=== PATIENT | male | born 1990 | race Caucasian/White ===

== ENCOUNTER 2016-07-10 16:10 | Inpatient (IN) | payer OTHER ==
[2016-07-10 18:22] VITALS: BMI 28.5
--- NOTE | 2016-07-10 20:10 | HP ---
COWS - Scale Resting Pulse: 1= [place] 81-100 Sweatin=Flushed/Facial Moisture Restless Observation: 3= Extraneous Movement Pupil Size: 0= Normal to Room Light Bone or Joint Aches: 2= Severe Diffuse Aches Runny Nose/ Eye Tearin= Nasal Congestion GI Upset > 30mins: 2= Nausea/Diarrhea Tremor Observation: 2= Slight Tremor Visible Yawning Observation: 1= 1-2x During Session Anxiety or Irritability: 1=Feels Anxious/Irritable Goose Flesh Skin: 0=Smooth Skin COWS Score: 15 Admission ROS S - HPI Chief Complaint: WITHDRAWAL SYMPTOMS Allergies/Adverse Reactions: Allergies Allergy/AdvReac Type Severity Reaction Status Date / Time No Known Allergies Allergy Verified 07/10/16 19:54 History of Present Illness: 25 Y.O. MAN WITH A 5 YEAR HISTORY OF OPIATE DEPENDENCE IS SEEKING DETOX. HE REPORTS HE DOES NOT HAVE A SIGNIFICANT PERIOD OF SOBRIETY. HE STATES HE HAS COMPLETED DETOX AND OUTPATIENT REHAB PREVIOUSLY. Exam Limitations: No Limitations - Ebola screening Have you traveled outside of the country in the last 21 days: No Have you had contact with anyone from an Ebola affected area: No Have you been sick,other than usual withdrawal symptoms: No Do you have a fever: No - Review of Systems Constitutional: Chills, Loss of Appetite, Night Sweats, Changes in sleep EENT: reports: Tearing, Nose Congestion Respiratory: reports: Wheezing Cardiac: reports: Lightheadedness GI: reports: No Symptoms Reported : reports: No Symptoms Reported Musculoskeletal: reports: Back Pain, Neck Pain Integumentary: reports: No Symptoms Reported Neuro: reports: No Symptoms reported Endocrine: reports: No Symptoms Reported Hematology: reports: No Symptoms Reported Psychiatric: reports: Orientated x3 Other Systems: Reviewed and Negative Patient History - Patient Medical History Hx Anemia: No Hx Asthma: Yes Hx Chronic Obstructive Pulmonary Disease (COPD): No Hx Cancer: No Hx Cardiac Disorders: No Hx Congestive Heart Failure: No Hx Hypertension: No Hx Hypercholesterolemia: No Hx Pacemaker: No HX Cerebrovascular Accident: No Hx Seizures: No Hx Dementia: No Hx Diabetes: No Hx Gastrointestinal Disorders: No Hx Liver Disease: No Hx Genitourinary Disorders: No Hx Sexually Transmitted Disorders: No Hx Renal Disease (ESRD): No Hx Thyroid Disease: No Hx Human Immunodeficiency Virus (HIV): No Hx Hepatitis C: No Hx Depression: No Hx Suicide Attempt: No Hx Bipolar Disorder: No Hx Schizophrenia: No - Patient Surgical History Past Surgical History: No Hx Neurologic Surgery: No Hx Cataract Extraction: No Hx Cardiac Surgery: No Hx Lung Surgery: No Hx Breast Surgery: No Hx Breast Biopsy: No Hx Abdominal Surgery: No Hx Appendectomy: No Hx Cholecystectomy: No Hx Genitourinary Surgery: No Hx Section: No Hx Orthopedic Surgery: No Anesthesia Reaction: No - PPD History Previous Implant?: Yes Documented Results: Negative w/o proof PPD to be Administered?: Yes - Reproductive History Patient is a Female of Child Bearing Age (11 -55 yrs old): No - Smoking Cessation Smoking history: Current every day smoker Have you smoked in the past 12 months: Yes Aproximately how many cigarettes per day: 20 Hx Chewing Tobacco Use: No Initiated information on smoking cessation: Yes 'Breaking Loose' booklet given: 07/10/16 - Substance & Tx. History Hx Alcohol Use: No Hx Substance Use: Yes Substance Use Type: Heroin Hx Substance Use Treatment: Yes (DETOX AND REHAB ) - Substances Abused Heroin Route: Inhalation Frequency: Daily Amount used: 4 GRAMS Age of first use: 22 Date of Last Use: 07/10/16 Family Disease History - Family Disease History Family Disease History: Other: Father (DRUG ADDICTION ), Mother (DRUG ADDICTION ) Admission Physical Exam BHS - Vital Signs Vital Signs: Vital Signs - 24 hr 07/10/16 18:20 Temperature 98.2 F Pulse Rate 81 Respiratory 20 Rate Blood Pressure 113/68 - Physical General Appearance: Yes: Disheveled HEENTM: Yes: Normal ENT Inspection, Normocephalic, Normal Voice, Nasal Congestion Respiratory: Yes: Wheezing, Expiration, Inspiration Neck: Yes: No masses,lesions,Nodules Breast: Yes: Breast Exam Deferred Cardiology: Yes: Regular Rhythm, Regular Rate, S1, S2 Abdominal: Yes: Normal Bowel Sounds, Non Tender, Flat, Soft Genitourinary: Yes: Within Normal Limits Back: Yes: Normal Inspection Musculoskeletal: Yes: full range of Motion Extremities: Yes: Normal Range of Motion, Non-Tender, Tremors Neurological: Yes: Fully Oriented, Normal Mood/Affect, Normal Response Integumentary: Yes: Normal Color, Dry, Warm Lymphatic: Yes: Within Normal Limits - Diagnostic (1) Opioid dependence with withdrawal Current Visit: Yes Status: Chronic (2) Asthma Current Visit: Yes Status: Chronic (3) Nicotine dependence Current Visit: Yes Status: Chronic Cleared for Admission [facility] - Detox or Rehab [facility] Level of Care: Medically Managed Detox Regimen/Protocol: Methadone [facility] Breath Alcohol Content Breath Alcohol Content: 0 Urine Drug Screen - Results Urine Drug Screen Results: THC-Marijuana, OPI-Opiates, OXY-Oxycodone
[2016-07-10] MEDS ORDERED: guaiFENesin/D-METHORPHAN HB 10 ML UNIT-DOSE CUPS PO PRN (20:17)
[2016-07-10] MEDS ORDERED: METHADONE HCL 10 MG TABLET (FOR DETOX USE ONLY) PO ONE ×2 (20:17→23:00)
[2016-07-10] MEDS ORDERED: IBUPROFEN 400 MG TABLET (FP) PO PRN (20:17)
[2016-07-10] MEDS ORDERED: MAGNESIUM HYDROX 2400MG/30ML ORAL SUSPENSION 30 ML CUP PO PRN (20:17)
[2016-07-10] MEDS ORDERED: ACETAMINOPHEN 325 MG TABLET (FP) PO PRN (20:17)
[2016-07-10] MEDS ORDERED: MAGNESIUM CITRATE 300 ML BOTTLE PO PRN (20:17)
[2016-07-10] MEDS ORDERED: MENTHOL/PHENOL 1 EACH UD MM PRN (20:17)
[2016-07-10] MEDS ORDERED: NICOTINE 10 MG CARTRIDGE (INHALER) IH PRN (20:17)
[2016-07-10] MEDS ORDERED: MAG HYDROX/AL HYDROX/SIMETH 30 ML UNIT-DOSE CUP PO PRN (20:17)
[2016-07-10] MEDS ORDERED: P-EPHED 60MG/TRIPROLIDI 2.5MG TABLET PO PRN (20:17)
[2016-07-10] MEDS ORDERED: LOPERAMIDE HCL 2 MG CAPSULE PO PRN (20:17)
[2016-07-10] MEDS ORDERED: ALBUTEROL SO4 6.7 GM HFA INHALER IH PRN (20:21)
[2016-07-10] MEDS: diazePAM 5 MG TABLET PO PRN (21:42)
[2016-07-10] MEDS: THIAMINE HCL 100 MG TABLET (FP) PO SCH (21:42)
[2016-07-10 22:30] LABS: URINE APPEARANCE SLCLOUDY; URINE BILIRUBIN NEGATIVE (NEGATIVE); URINE BLOOD NEGATIVE (NEGATIVE); URINE COLOR YELLOW; URINE GLUCOSE (UA) NEGATIVE (NEGATIVE); URINE KETONE TRACE (NEGATIVE); URINE LEUK ESTERASE NEGATIVE (NEGATIVE); URINE NITRITE NEGATIVE (NEGATIVE); URINE PROTEIN NEGATIVE (NEGATIVE); URINE UROBILINOGEN NEGATIVE E.U./dl (0.2-1.0)
[2016-07-10] MEDS: NICOTINE POLACRILEX 2 MG GUM BUC PRN (23:11)
[2016-07-11] MEDS: diazePAM 5 MG TABLET PO PRN ×3 (06:01→22:40)
[2016-07-11] MEDS ORDERED: METHADONE HCL 10 MG TABLET (FOR DETOX USE ONLY) PO ONE (10:00)
[2016-07-11] MEDS: PRENATAL VITAMINS W/ FOLIC ACID TABLET (FP) PO SCH (10:28)
[2016-07-11] MEDS: NICOTINE 21 MG/24 HOURS TOPICAL PATCH TD SCH (10:30)
[2016-07-11] MEDS: NICOTINE POLACRILEX 2 MG GUM BUC PRN ×3 (10:32→23:25)
[2016-07-11 10:39] LABS: MCH 30.6 pg (25.7-33.7); MCHC 34.3 g/dl (32.0-35.9); MEAN CELL VOLUME 89.2 fl (80-96); MEAN PLT VOLUME 7.9 fl (7.5-11.1); PLATELET COUNT 183 K/MM3 (134-434); RDW 12.4 % (11.9-15.9); WHITE BLOOD COUNT 6.4 K/mm3 (4.0-10.0)
[2016-07-11 12:23] LABS: ALBUMIN 3.3 g/dl (3.4-5.0); ANION GAP 7 (8-16); BILIRUBIN,TOTAL 0.8 mg/dL (0.2-1.0); CALCIUM 8.2 mg/dL (8.5-10.1); CO2 31 mmol/L (21-32); CREATININE 0.8 mg/dL (0.7-1.3); GLUCOSE,RANDOM 99 mg/dL (74-106); SGOT/AST 9 U/L (15-37); SGPT/ALT 16 U/L (12-78)
[2016-07-11 12:24] LABS: ALK PHOS 66 U/L (45-117); TOT PROT 5.7 g/dl (6.4-8.2)
--- NOTE | 2016-07-11 15:43 | PN ---
S COWS - Scale Resting Pulse: 0= [place] 80 or Below Sweatin=Flushed/Facial Moisture Restless Observation: 0= Sits Still Pupil Size: 0= Normal to Room Light Bone or Joint Aches: 2= Severe Diffuse Aches Runny Nose/ Eye Tearin= Runny Nose/Eyes GI Upset > 30mins: 0= None Tremor Observation of Outstretched Hands: 0= None Yawning Observation: 1= 1-2x During Session Anxiety or Irritability: 2=Irritable/Anxious Goose Flesh Skin: 3=Piloerection COWS Score: 12 BHS Progress Note (SOAP) Subjective: Interrupted sleep, Tremors, Sweating, lower back ache. Objective: PT. A & O X 3. 07/11/16 15:42 Vital Signs Temperature 96.2 F L 07/11/16 13:29 Pulse Rate 67 07/11/16 13:29 Respiratory Rate 18 07/11/16 13:29 Blood Pressure 120/64 07/11/16 13:29 O2 Sat by Pulse Oximetry (%) Laboratory Last Values WBC 6.4 K/mm3 (4.0-10.0) 07/11/16 08:13 RBC 4.54 M/mm3 (4.00-5.60) 07/11/16 08:13 Hgb 13.9 GM/dL (11.7-16.9) 07/11/16 08:13 Hct 40.5 % (35.4-49) 07/11/16 08:13 MCV 89.2 fl (80-96) 07/11/16 08:13 MCHC 34.3 g/dl (32.0-35.9) 07/11/16 08:13 RDW 12.4 % (11.9-15.9) 07/11/16 08:13 Plt Count 183 K/MM3 (134-434) 07/11/16 08:13 MPV 7.9 fl (7.5-11.1) 07/11/16 08:13 Sodium 141 mmol/L (136-145) 07/11/16 08:13 Potassium 3.9 mmol/L (3.5-5.1) 07/11/16 08:13 Chloride 103 mmol/L (98-107) 07/11/16 08:13 Carbon Dioxide 31 mmol/L (21-32) 07/11/16 08:13 Anion Gap 7 (8-16) L 07/11/16 08:13 BUN 18 mg/dL (7-18) 07/11/16 08:13 Creatinine 0.8 mg/dL (0.7-1.3) 07/11/16 08:13 Creat Clearance w eGFR > 60 (>60) 07/11/16 08:13 Random Glucose 99 mg/dL (74-106) 07/11/16 08:13 Calcium 8.2 mg/dL (8.5-10.1) L 07/11/16 08:13 Total Bilirubin 0.8 mg/dL (0.2-1.0) 07/11/16 08:13 AST 9 U/L (15-37) L 07/11/16 08:13 ALT 16 U/L (12-78) 07/11/16 08:13 Alkaline Phosphatase 66 U/L (45-117) 07/11/16 08:13 Total Protein 5.7 g/dl (6.4-8.2) L 07/11/16 08:13 Albumin 3.3 g/dl (3.4-5.0) L 07/11/16 08:13 Urine Color Yellow 07/10/16 21:36 Urine Appearance Slcloudy 07/10/16 21:36 Urine pH 5.0 (5.0-8.0) 07/10/16 21:36 Ur Specific [place] 1.033 (1.001-1.035) 07/10/16 21:36 Urine Protein Negative (NEGATIVE) 07/10/16 21:36 Urine Glucose (UA) Negative (NEGATIVE) 07/10/16 21:36 Urine Ketones Trace (NEGATIVE) H 07/10/16 21:36 Urine Blood Negative (NEGATIVE) 07/10/16 21:36 Urine Nitrite Negative (NEGATIVE) 07/10/16 21:36 Urine Bilirubin Negative (NEGATIVE) 07/10/16 21:36 Urine Urobilinogen Negative E.U./dl (0.2-1.0) 07/10/16 21:36 Ur Leukocyte Esterase Negative (NEGATIVE) 07/10/16 21:36 RPR Titer Nonreactive (NONREACTIVE) 07/11/16 08:13 LABS NOTED. 07/11/16 15:42 Assessment: 07/11/16 15:42 WITHDRAWAL SYMPTOMS. Plan: CONTINUE DETOX. ADVISED PATIENT TO FOLLOW-UP WITH AUTOMOBILE RADIATOR MECHANIC / REHAB MEDICAL PROVIDER AFTER DISCHARGE FROM DETOX FOR GENERAL MEDICAL ASSESSMENT AND FOR ANY ABNORMAL ADMISSION LAB VALUES.
[2016-07-11] MEDS: THIAMINE HCL 100 MG TABLET (FP) PO SCH (22:37)
[2016-07-12] MEDS: diazePAM 5 MG TABLET PO PRN ×3 (06:12→23:43)
[2016-07-12] MEDS ORDERED: METHADONE HCL 5 MG TABLET (FOR DETOX USE ONLY) PO ONE (10:00)
[2016-07-12] MEDS: NICOTINE 21 MG/24 HOURS TOPICAL PATCH TD SCH (11:15)
[2016-07-12] MEDS: PRENATAL VITAMINS W/ FOLIC ACID TABLET (FP) PO SCH (11:15)
--- NOTE | 2016-07-12 11:38 | EKG ---
Test Reason : Blood Pressure : / mmHG Vent. Rate : 078 BPM Atrial Rate : 078 BPM P-R Int : 132 ms QRS Dur : 092 ms QT Int : 372 ms P-R-T Axes : 066 068 050 degrees QTc Int : 424 ms NORMAL SINUS RHYTHM NORMAL ECG NO PREVIOUS ECGS AVAILABLE Confirmed by ANNA BOLDEN MD ([id number]) on 07/12/2016 11:38:23 AM Referred By: Confirmed By:ANNA BOLDEN MD
--- NOTE | 2016-07-12 11:52 | PN ---
BHS COWS - Scale Resting Pulse: 0= [place] 80 or Below Sweatin= Chills/Flushing Restless Observation: 3= Extraneous Movement Pupil Size: 0= Normal to Room Light Bone or Joint Aches: 2= Severe Diffuse Aches Runny Nose/ Eye Tearin= Runny Nose/Eyes GI Upset > 30mins: 1= Stomach Cramp Tremor Observation of Outstretched Hands: 2= Slight Tremor Visible Yawning Observation: 0= None Anxiety or Irritability: 4=Extreme Anxiety Goose Flesh Skin: 0=Smooth Skin COWS Score: 15 BHS Progress Note (SOAP) Subjective: Anxious, sweating, nausea, tremor, chills, interrupted sleep Objective: 07/12/16 11:51 Last Vital Signs Temp Pulse Resp BP Pulse Ox 97.2 F L 85 18 138/84 07/12/16 06:38 07/12/16 06:38 07/12/16 06:38 07/12/16 06:38 Laboratory Tests 07/10/16 07/11/16 07/11/16 21:36 08:13 08:13 WBC 6.4 RBC 4.54 Hgb 13.9 Hct 40.5 MCV 89.2 MCHC 34.3 RDW 12.4 Plt Count 183 MPV 7.9 Sodium 141 Potassium 3.9 Chloride 103 Carbon Dioxide 31 Anion Gap 7 L BUN 18 Creatinine 0.8 Creat Clearance w eGFR > 60 Random Glucose 99 Calcium 8.2 L Total Bilirubin 0.8 AST 9 L ALT 16 Alkaline Phosphatase 66 Total Protein 5.7 L Albumin 3.3 L Urine Color Yellow Urine Appearance Slcloudy Urine pH 5.0 Ur Specific [place] 1.033 Urine Protein Negative Urine Glucose (UA) Negative Urine Ketones Trace H Urine Blood Negative Urine Nitrite Negative Urine Bilirubin Negative Urine Urobilinogen Negative Ur Leukocyte Esterase Negative RPR Titer 07/11/16 08:13 WBC RBC Hgb Hct MCV MCHC RDW Plt Count MPV Sodium Potassium Chloride Carbon Dioxide Anion Gap BUN Creatinine Creat Clearance w eGFR Random Glucose Calcium Total Bilirubin AST ALT Alkaline Phosphatase Total Protein Albumin Urine Color Urine Appearance Urine pH Ur Specific [place] Urine Protein Urine Glucose (UA) Urine Ketones Urine Blood Urine Nitrite Urine Bilirubin Urine Urobilinogen Ur Leukocyte Esterase RPR Titer Nonreactive Labs noted Assessment: 07/12/16 11:51 Withdrawal symptoms Plan: Continue detox
[2016-07-12] MEDS: NICOTINE POLACRILEX 2 MG GUM BUC PRN ×2 (17:05→19:39)
[2016-07-12] MEDS: THIAMINE HCL 100 MG TABLET (FP) PO SCH (22:12)
[2016-07-12] MEDS: diphenhydrAMINE HCL 50 MG CAPSULE PO PRN (22:12)
[2016-07-13] MEDS: diazePAM 5 MG TABLET PO PRN ×4 (05:51→19:01)
[2016-07-13] MEDS ORDERED: IBUPROFEN 600 MG TABLET (FP) PO PRN (08:38)
--- NOTE | 2016-07-13 08:41 | PN ---
BHS Progress Note (SOAP) Subjective: Body aches,sweating,interrupted sleep,restless Objective: 07/13/16 08:39 Vital Signs - 8 hr 07/13/16 07/13/16 03:30 06:26 Temperature 97.4 F L Pulse Rate 56 L Respiratory 18 16 Rate Blood Pressure 109/73 Laboratory Last Values WBC 6.4 K/mm3 (4.0-10.0) 07/11/16 08:13 RBC 4.54 M/mm3 (4.00-5.60) 07/11/16 08:13 Hgb 13.9 GM/dL (11.7-16.9) 07/11/16 08:13 Hct 40.5 % (35.4-49) 07/11/16 08:13 MCV 89.2 fl (80-96) 07/11/16 08:13 MCHC 34.3 g/dl (32.0-35.9) 07/11/16 08:13 RDW 12.4 % (11.9-15.9) 07/11/16 08:13 Plt Count 183 K/MM3 (134-434) 07/11/16 08:13 MPV 7.9 fl (7.5-11.1) 07/11/16 08:13 Sodium 141 mmol/L (136-145) 07/11/16 08:13 Potassium 3.9 mmol/L (3.5-5.1) 07/11/16 08:13 Chloride 103 mmol/L (98-107) 07/11/16 08:13 Carbon Dioxide 31 mmol/L (21-32) 07/11/16 08:13 Anion Gap 7 (8-16) L 07/11/16 08:13 BUN 18 mg/dL (7-18) 07/11/16 08:13 Creatinine 0.8 mg/dL (0.7-1.3) 07/11/16 08:13 Creat Clearance w eGFR > 60 (>60) 07/11/16 08:13 Random Glucose 99 mg/dL (74-106) 07/11/16 08:13 Calcium 8.2 mg/dL (8.5-10.1) L 07/11/16 08:13 Total Bilirubin 0.8 mg/dL (0.2-1.0) 07/11/16 08:13 AST 9 U/L (15-37) L 07/11/16 08:13 ALT 16 U/L (12-78) 07/11/16 08:13 Alkaline Phosphatase 66 U/L (45-117) 07/11/16 08:13 Total Protein 5.7 g/dl (6.4-8.2) L 07/11/16 08:13 Albumin 3.3 g/dl (3.4-5.0) L 07/11/16 08:13 Urine Color Yellow 07/10/16 21:36 Urine Appearance Slcloudy 07/10/16 21:36 Urine pH 5.0 (5.0-8.0) 07/10/16 21:36 Ur Specific [place] 1.033 (1.001-1.035) 07/10/16 21:36 Urine Protein Negative (NEGATIVE) 07/10/16 21:36 Urine Glucose (UA) Negative (NEGATIVE) 07/10/16 21:36 Urine Ketones Trace (NEGATIVE) H 07/10/16 21:36 Urine Blood Negative (NEGATIVE) 07/10/16 21:36 Urine Nitrite Negative (NEGATIVE) 07/10/16 21:36 Urine Bilirubin Negative (NEGATIVE) 07/10/16 21:36 Urine Urobilinogen Negative E.U./dl (0.2-1.0) 07/10/16 21:36 Ur Leukocyte Esterase Negative (NEGATIVE) 07/10/16 21:36 RPR Titer Nonreactive (NONREACTIVE) 07/11/16 08:13 labs noted Assessment: 07/13/16 08:40 Withdrawal sx. Plan: Continue detox
[2016-07-13] MEDS ORDERED: METHADONE HCL 5 MG TABLET (FOR DETOX USE ONLY) PO ONE (10:00)
[2016-07-13] MEDS: PRENATAL VITAMINS W/ FOLIC ACID TABLET (FP) PO SCH (10:27)
[2016-07-13] MEDS: NICOTINE 21 MG/24 HOURS TOPICAL PATCH TD SCH (10:28)
[2016-07-13] MEDS: NICOTINE POLACRILEX 2 MG GUM BUC PRN ×4 (10:29→22:27)
[2016-07-13] MEDS: hydrOXYzine PAMOATE 50 MG CAPSULE (FP) PO PRN (22:26)
[2016-07-13] MEDS: THIAMINE HCL 100 MG TABLET (FP) PO SCH (22:58)
[2016-07-14] MEDS: NICOTINE POLACRILEX 2 MG GUM BUC PRN ×6 (06:06→22:40)
[2016-07-14] MEDS: hydrOXYzine PAMOATE 50 MG CAPSULE (FP) PO PRN ×3 (06:06→17:17)
[2016-07-14] MEDS ORDERED: METHADONE HCL 10 MG TABLET (FOR DETOX USE ONLY) PO ONE (10:00)
[2016-07-14] MEDS: PRENATAL VITAMINS W/ FOLIC ACID TABLET (FP) PO SCH (10:34)
[2016-07-14] MEDS: NICOTINE 21 MG/24 HOURS TOPICAL PATCH TD SCH (10:34)
--- NOTE | 2016-07-14 11:17 | PN ---
BHS Progress Note (SOAP) Subjective: ANXIETY,SWEATS, FATIGUE. Objective: 07/14/16 11:16 Vital Signs Temperature 95.1 F L 07/14/16 10:56 Pulse Rate 78 07/14/16 10:56 Respiratory Rate 18 07/14/16 10:56 Blood Pressure 130/66 07/14/16 10:56 O2 Sat by Pulse Oximetry (%) Assessment: 07/14/16 11:16 WITHDRAWAL SX Plan: CONTINUE DETOX
[2016-07-14] MEDS: THIAMINE HCL 100 MG TABLET (FP) PO SCH (22:19)
[2016-07-14] MEDS: diphenhydrAMINE HCL 50 MG CAPSULE PO PRN (22:20)
[2016-07-15] MEDS: diphenhydrAMINE HCL 50 MG CAPSULE PO PRN (00:47)
[2016-07-15] MEDS ORDERED: METHADONE HCL 5 MG TABLET (FOR DETOX USE ONLY) PO ONE (06:00)
[2016-07-15] MEDS: NICOTINE POLACRILEX 2 MG GUM BUC PRN (06:30)
[2016-07-15 06:34] VITALS: BP 123/76; PULSE 73; TEMP 97.8
--- NOTE | 2016-07-15 08:31 | DS ---
[facility] Detox Discharge Summary Admission Date: 07/10/16 Discharge Date: 07/15/16 - History Present History: Opioid Dependence Additional Comments: DETOX COMPLETED. ALERT O X 3. NAD. Pertinent Past History: ASTHMA - Physical Exam Results Vital Signs: Vital Signs Temperature 97.8 F 07/15/16 06:34 Pulse Rate 73 07/15/16 06:34 Respiratory Rate 18 07/15/16 06:34 Blood Pressure 123/76 07/15/16 06:34 O2 Sat by Pulse Oximetry (%) Pertinent Admission Physical Exam Findings: WITHDRAWAL SX - Treatment Hospital Course: Detox Protocol Followed, Detoxed Safely, Responded well, Discharged Condition Good - Medication Discharge Medications: Ambulatory Orders NK [No Known Home Medication] 07/10/16 - Diagnosis (1) Asthma Current Visit: Yes Status: Chronic Qualifiers: Asthma severity: mild intermittent Asthma complication type: uncomplicated Qualified Code(s): J45.20 - Mild intermittent asthma, uncomplicated (2) Nicotine dependence Current Visit: Yes Status: Acute Qualifiers: Substance use status: in withdrawal (3) Opioid dependence with withdrawal Current Visit: Yes Status: Acute - AMA Did Patient Leave Against Medical Advice: No
== END 2016-07-15 10:14 | disposition home or self-care (01) | DRG 773 ==
LOC: YASAS 16:10 → Y3N 20:07
PROVIDERS: ADMIT Internal Medicine Addiction Medicine; ATTEND Internal Medicine Addiction Medicine
PROC: HZ2ZZZZ Detoxification Services for Substance Abuse Treatment (ICD-10-PCS; principal; 2016-07-10)
DX: F11.23 Opioid dependence with withdrawal (principal); F17.210 Nicotine dependence, cigarettes, uncomplicated; J45.20 Mild intermittent asthma, uncomplicated
CPT/HCPCS: 36415; 80053; 81003; 85027; 86593; 93005; 93010

== ENCOUNTER 2018-03-16 10:32 | Inpatient (IN) | payer OTHER ==
[2018-03-16 11:06] VITALS: BMI 29.0
--- NOTE | 2018-03-16 14:40 | HP ---
COWS - Scale Resting Pulse: 0= [place] 80 or Below Sweatin=Flushed/Facial Moisture Restless Observation: 1= Difficult to Sit Still Pupil Size: 0= Normal to Room Light Bone or Joint Aches: 2= Severe Diffuse Aches Runny Nose/ Eye Tearin= Runny Nose/Eyes GI Upset > 30mins: 0= None Tremor Observation: 2= Slight Tremor Visible Yawning Observation: 1= 1-2x During Session Anxiety or Irritability: 2=Irritable/Anxious Goose Flesh Skin: 3=Piloerection COWS Score: 15 CIWA Score Nausea/Vomitin-No Nausea/No Vomiting Muscle Tremors: 3 Anxiety: 3 Agitation: 3 Paroxysmal Sweats: 3 Orientation: 0-Oriented Tacttile Disturbances: 0-None Auditory Disturbances: 0-None Visual Disturbances: 0-None Headache: 2-Mild CIWA-Ar Total Score: 14 - Admission Criteria [facility] Guidelines: Admission for Medically Managed Detox: Requires at least one of the followin. CIWA greater than 12 2. Seizures within the past 24 hours 3. Delirium tremens within the past 24 hours 4. Hallucinations within the past 24 hours 5. Acute intervention needed for co occurring medical disorder 6. Acute intervention needed for co occurring psychiatric disorder 7. Severe withdrawal that cannot be handled at a lower level of care (continued vomiting, continued diarrhea, abnormal vital signs) requiring intravenous medication and/or fluids 8. Admission ROS S - [facility] Chief Complaint: I need to be here to straighten out my life. Allergies/Adverse Reactions: Allergies Allergy/AdvReac Type Severity Reaction Status Date / Time No Known Allergies Allergy Verified 11/21/17 17:48 History of Present Illness: pt is a 27yr old male with a history of benzodiazapine, heroin, valium and crack /cocaine dependence seeking detox for treatment. Exam Limitations: No Limitations - Ebola screening Have you traveled outside of the country in the last 21 days: No Have you had contact with anyone from an Ebola affected area: No Have you been sick,other than usual withdrawal symptoms: No Do you have a fever: No - Review of Systems Constitutional: Chills, Diaphoresis, Night Sweats, Changes in sleep EENT: reports: Tearing, Nose Congestion Respiratory: reports: No Symptoms reported Cardiac: reports: No Symptoms Reported GI: reports: Constipated, Poor Appetite, Poor Fluid Intake : reports: Urgency Musculoskeletal: reports: Back Pain Integumentary: reports: Flushing, Sweating Neuro: reports: Tingling, Tremors Endocrine: reports: Excessive Sweating, Flushing, Intolerance to Cold, Intolerance to Heat Hematology: reports: No Symptoms Reported Psychiatric: reports: Judgement Intact, Mood/Affect Appropiate, Orientated x3, Agitated, Anxious Other Systems: Reviewed and Negative Patient History - Patient Medical History Hx Anemia: No Hx Asthma: Yes (albuterol) Hx Chronic Obstructive Pulmonary Disease (COPD): No Hx Cancer: No Hx Cardiac Disorders: No Hx Congestive Heart Failure: No Hx Hypertension: No Hx Hypercholesterolemia: No Hx Pacemaker: No HX Cerebrovascular Accident: No Hx Seizures: No Hx Dementia: No Hx Diabetes: No Hx Gastrointestinal Disorders: No Hx Liver Disease: No Hx Genitourinary Disorders: No Hx Sexually Transmitted Disorders: No Hx Renal Disease (ESRD): No Hx Thyroid Disease: No Hx Human Immunodeficiency Virus (HIV): No (denies) Hx Hepatitis C: No (denies) Hx Depression: No Hx Suicide Attempt: No (denies) Hx Bipolar Disorder: No Hx Schizophrenia: No - Patient Surgical History Past Surgical History: No Hx Neurologic Surgery: No Hx Cataract Extraction: No Hx Cardiac Surgery: No Hx Lung Surgery: No Hx Breast Surgery: No Hx Breast Biopsy: No Hx Abdominal Surgery: No Hx Appendectomy: No Hx Cholecystectomy: No Hx Genitourinary Surgery: No Hx Section: No Hx Orthopedic Surgery: No Anesthesia Reaction: No - PPD History Previous Implant?: Yes Documented Results: Negative w/proof Implanted On Prior [facility] Admission?: Yes Date: 11/23/17 Results: 0 mm PPD to be Administered?: No - Reproductive History Patient is a Female of Child Bearing Age (11 -55 yrs old): No - Smoking Cessation Smoking history: Current every day smoker Have you smoked in the past 12 months: Yes Aproximately how many cigarettes per day: 20 Hx Chewing Tobacco Use: No Initiated information on smoking cessation: Yes 'Breaking Loose' booklet given: 03/16/18 - Substance & Tx. History Hx Substance Use: Yes Substance Use Type: Cocaine, Heroin, Opiates, Tranquilizers Hx Substance Use Treatment: Yes (last detox 10/2017 [facility]) - Substances Abused Heroin Route: Inhalation Frequency: Daily Amount used: 2 gms. Age of first use: 21 Date of Last Use: 03/16/18 Cocaine Route: Smoking Frequency: 3-6 times per week Amount used: $100 Age of first use: 18 Date of Last Use: 03/15/18 Xanax/Valium Route: Oral Frequency: Daily Amount used: 6 tabs. (2 mg.)/6 tabs. (10 mg.) Age of first use: 15 Date of Last Use: 03/16/18 Family Disease History - Family Disease History Family Disease History: Other: Father (DRUG ADDICTION ), Mother (DRUG ADDICTION ) Admission Physical Exam [facility] - Vital Signs Vital Signs: Vital Signs - 24 hr 03/16/18 11:03 Temperature 96.0 F L Pulse Rate 67 Respiratory 18 Rate Blood Pressure 116/57 L - Physical General Appearance: Yes: Appropriately Dressed, Moderate Distress, Tremorous, Irritable, Sweating, Anxious HEENTM: Yes: Hearing grossly Normal, Normal Voice, Nasal Congestion, Rhinorrhea Respiratory: Yes: Lungs Clear, Normal Breath Sounds, No Respiratory Distress Neck: Yes: No masses,lesions,Nodules Breast: Yes: Within Normal Limits Cardiology: Yes: Regular Rhythm, Regular Rate, S1, S2 Abdominal: Yes: Normal Bowel Sounds, Non Tender, Flat Genitourinary: Yes: Within Normal Limits Back: Yes: Normal Inspection Musculoskeletal: Yes: full range of Motion, Back pain Extremities: Yes: Normal Capillary Refill, Normal Inspection, Non-Tender, Tremors Neurological: Yes: Fully Oriented, Normal Response Integumentary: Yes: Normal Color, Diaphoresis Lymphatic: Yes: Within Normal Limits - Diagnostic (1) Benzodiazepine dependence Current Visit: Yes Status: Chronic (2) Cocaine dependence Current Visit: Yes Status: Chronic Qualifiers: Substance use status: uncomplicated (3) Opioid dependence with withdrawal Current Visit: Yes Status: Chronic (4) Asthma Current Visit: Yes Status: Chronic Qualifiers: Asthma severity: mild Asthma complication type: uncomplicated Cleared for Admission [facility] - Detox or Rehab [facility] Level of Care: Medically Managed Detox Regimen/Protocol: Methadone/Valium [facility] Breath Alcohol Content Breath Alcohol Content: 0 Urine Drug Screen - Results Drug Screen Negative: No Urine Drug Screen Results: THC-Marijuana, MIRIAN-Cocaine, OPI-Opiates, BAR- Barbiturates, BZO-Benzodiazepines, FEN-Fentanyl
[2018-03-16] MEDS ORDERED: MAGNESIUM HYDROX 2400MG/30ML ORAL SUSPENSION 30 ML CUP PO PRN (14:51)
[2018-03-16] MEDS ORDERED: MAGNESIUM CITRATE 300 ML BOTTLE PO PRN (14:51)
[2018-03-16] MEDS ORDERED: guaiFENesin/D-METHORPHAN HB 10 ML UNIT-DOSE CUPS PO PRN (14:51)
[2018-03-16] MEDS ORDERED: P-EPHED 60MG/TRIPROLIDI 2.5MG TABLET PO PRN (14:51)
[2018-03-16] MEDS ORDERED: MENTHOL/PHENOL 1 EACH UD MM PRN (14:51)
[2018-03-16] MEDS ORDERED: hydrOXYzine PAMOATE 50 MG CAPSULE (FP) PO PRN (14:51)
[2018-03-16] MEDS ORDERED: MAG HYDROX/AL HYDROX/SIMETH 30 ML UNIT-DOSE CUP PO PRN (14:51)
[2018-03-16] MEDS ORDERED: IBUPROFEN 400 MG TABLET (FP) PO PRN (14:51)
[2018-03-16] MEDS ORDERED: LOPERAMIDE HCL 2 MG CAPSULE PO PRN (14:51)
[2018-03-16] MEDS ORDERED: ACETAMINOPHEN 325 MG TABLET (FP) PO PRN (14:51)
[2018-03-16] MEDS ORDERED: ALBUTEROL SO4 8 GM HFA INHALER IH PRN (14:52)
[2018-03-16] MEDS ORDERED: METHADONE HCL 10 MG TABLET (FOR DETOX USE ONLY) PO ONE ×2 (15:30→23:00)
[2018-03-16] MEDS ORDERED: diazePAM 5 MG TABLET PO ONE (15:30)
--- NOTE | 2018-03-16 15:43 | EKG ---
Test Reason : Blood Pressure : / mmHG Vent. Rate : 054 BPM Atrial Rate : 054 BPM P-R Int : 110 ms QRS Dur : 082 ms QT Int : 402 ms P-R-T Axes : 004 082 052 degrees QTc Int : 381 ms SINUS BRADYCARDIA WITH SHORT MI OTHERWISE NORMAL ECG WHEN COMPARED WITH ECG OF 21-NOV-2017 18:12, NO SIGNIFICANT CHANGE WAS FOUND Confirmed by ROBERT VARGAS MD ([id number]) on 03/16/2018 3:43:42 PM Referred By: Confirmed By:ROBERT VARGAS MD
[2018-03-16] MEDS: diazePAM 5 MG TABLET PO SCH (22:42)
[2018-03-16] MEDS: THIAMINE HCL 100 MG TABLET (FP) PO SCH (22:42)
[2018-03-16] MEDS: NICOTINE POLACRILEX 4 MG GUM BUC PRN (23:00)
[2018-03-16 23:57] LABS: URINE APPEARANCE TURBID; URINE BILIRUBIN NEGATIVE (<2.0 mg/dL); URINE COLOR YELLOW; URINE GLUCOSE (UA) NEGATIVE (NEGATIVE); URINE KETONE NEGATIVE (NEGATIVE); URINE LEUK ESTERASE NEGATIVE (NEGATIVE); URINE NITRITE NEGATIVE (NEGATIVE); URINE PROTEIN NEGATIVE (NEGATIVE); URINE UROBILINOGEN NEGATIVE mg/dL (0.2-1.0)
[2018-03-17] MEDS: diazePAM 5 MG TABLET PO SCH ×3 (05:31→22:59)
[2018-03-17] MEDS ORDERED: METHADONE HCL 10 MG TABLET (FOR DETOX USE ONLY) PO SCH (10:00)
[2018-03-17 10:21] LABS: HEMATOCRIT 46.7 % (35.4-49); HEMOGLOBIN 15.6 GM/dL (11.7-16.9); MCH 30.6 pg (25.7-33.7); MCHC 33.3 g/dl (32.0-35.9); MEAN CELL VOLUME 91.8 fl (80-96); MEAN PLT VOLUME 7.7 fl (7.5-11.1); PLATELET COUNT 223 K/MM3 (134-434); RBC 5.09 M/mm3 (4.00-5.60); RDW 12.9 % (11.9-15.9); WHITE BLOOD COUNT 4.9 K/mm3 (4.0-10.0)
[2018-03-17] MEDS: diazePAM 5 MG TABLET PO PRN (10:29)
[2018-03-17] MEDS: NICOTINE 21 MG/24 HOURS TOPICAL PATCH TD SCH (10:29)
[2018-03-17] MEDS: NICOTINE POLACRILEX 4 MG GUM BUC PRN ×2 (10:29→13:35)
[2018-03-17] MEDS: PRENATAL VITAMINS W/ FOLIC ACID TABLET (FP) PO SCH (10:29)
[2018-03-17 10:32] LABS: ALBUMIN 3.2 g/dl (3.4-5.0); ALK PHOS 71 U/L (45-117); ANION GAP 9 MMOL/L (8-16); BILIRUBIN,TOTAL 0.7 mg/dL (0.2-1); BLOOD UREA NITROGEN 18 mg/dL (7-18); CALCIUM 8.3 mg/dL (8.5-10.1); CHLORIDE 104 mmol/L (98-107); CO2 27 mmol/L (21-32); GLUCOSE,RANDOM 86 mg/dL (74-106); POTASSIUM 4.4 mmol/L (3.5-5.1); SGOT/AST 27 U/L (15-37); SGPT/ALT 31 U/L (13-61); SODIUM 140 mmol/L (136-145)
--- NOTE | 2018-03-17 14:14 | PN ---
[facility] CIWA - CIWA Score Nausea/Vomitin-Mild Nausea/No Vomiting Muscle Tremors: 3 Anxiety: 3 Agitation: 3 Paroxysmal Sweats: 1-Minimal Palms Moist Orientation: 1-Uncertain about Date Tacttile Disturbances: 1-Very Mild Itch/Numbness Auditory Disturbances: 0-None Visual Disturbances: 0-None Headache: 0-None Present CIWA-Ar Total Score: 13 S COWS - Scale Resting Pulse: 0= [place] 80 or Below Sweatin= Chills/Flushing Restless Observation: 1= Difficult to Sit Still Pupil Size: 0= Normal to Room Light Bone or Joint Aches: 2= Severe Diffuse Aches Runny Nose/ Eye Tearin= Nasal Congestion GI Upset > 30mins: 2= Nausea/Diarrhea Tremor Observation of Outstretched Hands: 1= Tremor [place], Not Seen Yawning Observation: 1= 1-2x During Session Anxiety or Irritability: 1=Feels Anxious/Irritable Goose Flesh Skin: 0=Smooth Skin COWS Score: 10 [facility] Progress Note (SOAP) Subjective: sweat tremor restlessness joints pain body aches Objective: 03/17/18 14:15 Vital Signs Temperature 96.1 F L 03/17/18 13:42 Pulse Rate 63 03/17/18 13:42 Respiratory Rate 18 03/17/18 13:42 Blood Pressure 128/76 03/17/18 13:42 O2 Sat by Pulse Oximetry (%) Laboratory Last Values WBC 4.9 K/mm3 (4.0-10.0) 03/17/18 07:50 RBC 5.09 M/mm3 (4.00-5.60) 03/17/18 07:50 Hgb 15.6 GM/dL (11.7-16.9) 03/17/18 07:50 Hct 46.7 % (35.4-49) D 03/17/18 07:50 MCV 91.8 fl (80-96) 03/17/18 07:50 MCH 30.6 pg (25.7-33.7) 03/17/18 07:50 MCHC 33.3 g/dl (32.0-35.9) 03/17/18 07:50 RDW 12.9 % (11.9-15.9) 03/17/18 07:50 Plt Count 223 K/MM3 (134-434) 03/17/18 07:50 MPV 7.7 fl (7.5-11.1) 03/17/18 07:50 Sodium 140 mmol/L (136-145) 03/17/18 07:50 Potassium 4.4 mmol/L (3.5-5.1) 03/17/18 07:50 Chloride 104 mmol/L (98-107) 03/17/18 07:50 Carbon Dioxide 27 mmol/L (21-32) 03/17/18 07:50 Anion Gap 9 MMOL/L (8-16) 03/17/18 07:50 BUN 18 mg/dL (7-18) 03/17/18 07:50 Creatinine 1.0 mg/dL (0.55-1.3) 03/17/18 07:50 Creat Clearance w eGFR > 60 (>60) 03/17/18 07:50 Random Glucose 86 mg/dL (74-106) 03/17/18 07:50 Calcium 8.3 mg/dL (8.5-10.1) L 03/17/18 07:50 Total Bilirubin 0.7 mg/dL (0.2-1) 03/17/18 07:50 AST 27 U/L (15-37) 03/17/18 07:50 ALT 31 U/L (13-61) 03/17/18 07:50 Alkaline Phosphatase 71 U/L (45-117) 03/17/18 07:50 Total Protein 6.0 g/dl (6.4-8.2) L 03/17/18 07:50 Albumin 3.2 g/dl (3.4-5.0) L 03/17/18 07:50 Urine Color Yellow 03/16/18 23:45 Urine Appearance Turbid 03/16/18 23:45 Urine pH 5.0 (5.0-8.0) 03/16/18 23:45 Ur Specific [place] 1.027 (1.010-1.035) 03/16/18 23:45 Urine Protein Negative (NEGATIVE) 03/16/18 23:45 Urine Glucose (UA) Negative (NEGATIVE) 03/16/18 23:45 Urine Ketones Negative (NEGATIVE) 03/16/18 23:45 Urine Blood Negative (NEGATIVE) 03/16/18 23:45 Urine Nitrite Negative (NEGATIVE) 03/16/18 23:45 Urine Bilirubin Negative (<2.0 mg/dL) 03/16/18 23:45 Urine Urobilinogen Negative mg/dL (0.2-1.0) 03/16/18 23:45 Ur Leukocyte Esterase Negative (NEGATIVE) 03/16/18 23:45 RPR Titer Nonreactive (NONREACTIVE) 03/17/18 07:50 lab noted Assessment: 03/17/18 14:16 withdrawal sx Plan: continue detox
[2018-03-17] MEDS: THIAMINE HCL 100 MG TABLET (FP) PO SCH (22:59)
[2018-03-18] MEDS: NICOTINE 21 MG/24 HOURS TOPICAL PATCH TD SCH (10:49)
[2018-03-18] MEDS: NICOTINE POLACRILEX 4 MG GUM BUC PRN ×2 (10:49→23:12)
[2018-03-18] MEDS: PRENATAL VITAMINS W/ FOLIC ACID TABLET (FP) PO SCH (10:50)
[2018-03-18] MEDS: METHADONE HCL 5 MG TABLET (FOR DETOX USE ONLY) PO SCH (10:51)
[2018-03-18] MEDS: diazePAM 5 MG TABLET PO SCH ×2 (10:52→22:49)
--- NOTE | 2018-03-18 12:04 | PN ---
[facility] CIWA - CIWA Score Nausea/Vomitin-No Nausea/No Vomiting Muscle Tremors: 3 Anxiety: 3 Agitation: 2 Paroxysmal Sweats: 2 Orientation: 0-Oriented Tacttile Disturbances: 0-None Auditory Disturbances: 0-None Visual Disturbances: 0-None Headache: 0-None Present CIWA-Ar Total Score: 10 [facility] COWS - Scale Resting Pulse: 0= [place] 80 or Below Sweatin=Flushed/Facial Moisture Restless Observation: 0= Sits Still Pupil Size: 0= Normal to Room Light Bone or Joint Aches: 1= Mild Discomfort Runny Nose/ Eye Tearin= Nasal Congestion GI Upset > 30mins: 0= None Tremor Observation of Outstretched Hands: 1= Tremor [place], Not Seen Yawning Observation: 1= 1-2x During Session Anxiety or Irritability: 1=Feels Anxious/Irritable Goose Flesh Skin: 0=Smooth Skin COWS Score: 7 S Progress Note (SOAP) Subjective: sweats mild shakes interrupted sleep mild body aches agitation Objective: 03/18/18 12:03 Vital Signs Temperature 98.9 F 03/18/18 09:18 Pulse Rate 67 03/18/18 09:18 Respiratory Rate 18 03/18/18 09:18 Blood Pressure 135/80 03/18/18 09:18 O2 Sat by Pulse Oximetry (%) Laboratory Tests 03/16/18 03/17/18 03/17/18 23:45 07:50 07:50 WBC 4.9 RBC 5.09 Hgb 15.6 Hct 46.7 D MCV 91.8 MCH 30.6 MCHC 33.3 RDW 12.9 Plt Count 223 MPV 7.7 Sodium 140 Potassium 4.4 Chloride 104 Carbon Dioxide 27 Anion Gap 9 BUN 18 Creatinine 1.0 Creat Clearance w eGFR > 60 Random Glucose 86 Calcium 8.3 L Total Bilirubin 0.7 AST 27 ALT 31 Alkaline Phosphatase 71 Total Protein 6.0 L Albumin 3.2 L Urine Color Yellow Urine Appearance Turbid Urine pH 5.0 Ur Specific [place] 1.027 Urine Protein Negative Urine Glucose (UA) Negative Urine Ketones Negative Urine Blood Negative Urine Nitrite Negative Urine Bilirubin Negative Urine Urobilinogen Negative Ur Leukocyte Esterase Negative RPR Titer 03/17/18 07:50 WBC RBC Hgb Hct MCV MCH MCHC RDW Plt Count MPV Sodium Potassium Chloride Carbon Dioxide Anion Gap BUN Creatinine Creat Clearance w eGFR Random Glucose Calcium Total Bilirubin AST ALT Alkaline Phosphatase Total Protein Albumin Urine Color Urine Appearance Urine pH Ur Specific [place] Urine Protein Urine Glucose (UA) Urine Ketones Urine Blood Urine Nitrite Urine Bilirubin Urine Urobilinogen Ur Leukocyte Esterase RPR Titer Nonreactive aaox3 ambulating no acute distress Assessment: 03/18/18 12:03 withdrawal sx Plan: continue detox increase fluids
[2018-03-18] MEDS: MELATONIN 5 MG TABLETS PO PRN (22:49)
[2018-03-18] MEDS: THIAMINE HCL 100 MG TABLET (FP) PO SCH (22:49)
[2018-03-19] MEDS: diazePAM 5 MG TABLET PO SCH ×2 (10:15→22:18)
[2018-03-19] MEDS: PRENATAL VITAMINS W/ FOLIC ACID TABLET (FP) PO SCH (10:15)
[2018-03-19] MEDS: METHADONE HCL 5 MG TABLET (FOR DETOX USE ONLY) PO SCH (10:15)
[2018-03-19] MEDS: NICOTINE 21 MG/24 HOURS TOPICAL PATCH TD SCH (10:15)
[2018-03-19] MEDS: NICOTINE POLACRILEX 4 MG GUM BUC PRN ×4 (10:16→22:18)
--- NOTE | 2018-03-19 11:46 | PN ---
[facility] Progress Note (SOAP) Subjective: shakes sweats chills body aches Objective: 03/19/18 11:45 Vital Signs Temperature 97.7 F 03/19/18 09:34 Pulse Rate 57 L 03/19/18 09:34 Respiratory Rate 18 03/19/18 09:34 Blood Pressure 128/55 L 03/19/18 09:34 O2 Sat by Pulse Oximetry (%) Laboratory Tests 03/16/18 03/17/18 03/17/18 23:45 07:50 07:50 WBC 4.9 RBC 5.09 Hgb 15.6 Hct 46.7 D MCV 91.8 MCH 30.6 MCHC 33.3 RDW 12.9 Plt Count 223 MPV 7.7 Sodium 140 Potassium 4.4 Chloride 104 Carbon Dioxide 27 Anion Gap 9 BUN 18 Creatinine 1.0 Creat Clearance w eGFR > 60 Random Glucose 86 Calcium 8.3 L Total Bilirubin 0.7 AST 27 ALT 31 Alkaline Phosphatase 71 Total Protein 6.0 L Albumin 3.2 L Urine Color Yellow Urine Appearance Turbid Urine pH 5.0 Ur Specific [place] 1.027 Urine Protein Negative Urine Glucose (UA) Negative Urine Ketones Negative Urine Blood Negative Urine Nitrite Negative Urine Bilirubin Negative Urine Urobilinogen Negative Ur Leukocyte Esterase Negative RPR Titer 03/17/18 07:50 WBC RBC Hgb Hct MCV MCH MCHC RDW Plt Count MPV Sodium Potassium Chloride Carbon Dioxide Anion Gap BUN Creatinine Creat Clearance w eGFR Random Glucose Calcium Total Bilirubin AST ALT Alkaline Phosphatase Total Protein Albumin Urine Color Urine Appearance Urine pH Ur Specific [place] Urine Protein Urine Glucose (UA) Urine Ketones Urine Blood Urine Nitrite Urine Bilirubin Urine Urobilinogen Ur Leukocyte Esterase RPR Titer Nonreactive aaox3 ambulating no acute distress Assessment: 03/19/18 11:45 withdrawal sx Plan: continue detox increase fluids
[2018-03-19] MEDS: diazePAM 5 MG TABLET PO PRN (13:17)
[2018-03-19] MEDS: MELATONIN 5 MG TABLETS PO PRN (22:18)
[2018-03-19] MEDS: THIAMINE HCL 100 MG TABLET (FP) PO SCH (22:18)
[2018-03-20] MEDS ORDERED: METHADONE HCL 10 MG TABLET (FOR DETOX USE ONLY) PO SCH (10:00)
[2018-03-20] MEDS ORDERED: diazePAM 5 MG TABLET PO SCH (10:00)
--- NOTE | 2018-03-20 10:09 | PN ---
[facility] Progress Note (SOAP) Subjective: feeling better less sweat no tremor sleep better at night Objective: 03/20/18 10:08 Vital Signs Temperature 96.4 F L 03/20/18 09:30 Pulse Rate 56 L 03/20/18 09:30 Respiratory Rate 16 03/20/18 09:30 Blood Pressure 127/64 03/20/18 09:30 O2 Sat by Pulse Oximetry (%) Laboratory Last Values WBC 4.9 K/mm3 (4.0-10.0) 03/17/18 07:50 RBC 5.09 M/mm3 (4.00-5.60) 03/17/18 07:50 Hgb 15.6 GM/dL (11.7-16.9) 03/17/18 07:50 Hct 46.7 % (35.4-49) D 03/17/18 07:50 MCV 91.8 fl (80-96) 03/17/18 07:50 MCH 30.6 pg (25.7-33.7) 03/17/18 07:50 MCHC 33.3 g/dl (32.0-35.9) 03/17/18 07:50 RDW 12.9 % (11.9-15.9) 03/17/18 07:50 Plt Count 223 K/MM3 (134-434) 03/17/18 07:50 MPV 7.7 fl (7.5-11.1) 03/17/18 07:50 Sodium 140 mmol/L (136-145) 03/17/18 07:50 Potassium 4.4 mmol/L (3.5-5.1) 03/17/18 07:50 Chloride 104 mmol/L (98-107) 03/17/18 07:50 Carbon Dioxide 27 mmol/L (21-32) 03/17/18 07:50 Anion Gap 9 MMOL/L (8-16) 03/17/18 07:50 BUN 18 mg/dL (7-18) 03/17/18 07:50 Creatinine 1.0 mg/dL (0.55-1.3) 03/17/18 07:50 Creat Clearance w eGFR > 60 (>60) 03/17/18 07:50 Random Glucose 86 mg/dL (74-106) 03/17/18 07:50 Calcium 8.3 mg/dL (8.5-10.1) L 03/17/18 07:50 Total Bilirubin 0.7 mg/dL (0.2-1) 03/17/18 07:50 AST 27 U/L (15-37) 03/17/18 07:50 ALT 31 U/L (13-61) 03/17/18 07:50 Alkaline Phosphatase 71 U/L (45-117) 03/17/18 07:50 Total Protein 6.0 g/dl (6.4-8.2) L 03/17/18 07:50 Albumin 3.2 g/dl (3.4-5.0) L 03/17/18 07:50 Urine Color Yellow 03/16/18 23:45 Urine Appearance Turbid 03/16/18 23:45 Urine pH 5.0 (5.0-8.0) 03/16/18 23:45 Ur Specific [place] 1.027 (1.010-1.035) 03/16/18 23:45 Urine Protein Negative (NEGATIVE) 03/16/18 23:45 Urine Glucose (UA) Negative (NEGATIVE) 03/16/18 23:45 Urine Ketones Negative (NEGATIVE) 03/16/18 23:45 Urine Blood Negative (NEGATIVE) 03/16/18 23:45 Urine Nitrite Negative (NEGATIVE) 03/16/18 23:45 Urine Bilirubin Negative (<2.0 mg/dL) 03/16/18 23:45 Urine Urobilinogen Negative mg/dL (0.2-1.0) 03/16/18 23:45 Ur Leukocyte Esterase Negative (NEGATIVE) 03/16/18 23:45 RPR Titer Nonreactive (NONREACTIVE) 03/17/18 07:50 lab noted Assessment: 03/20/18 10:09 mild withdrawal sx Plan: medically supervised detox
[2018-03-20] MEDS: PRENATAL VITAMINS W/ FOLIC ACID TABLET (FP) PO SCH (10:59)
[2018-03-20] MEDS: NICOTINE 21 MG/24 HOURS TOPICAL PATCH TD SCH (11:00)
[2018-03-20] MEDS: NICOTINE POLACRILEX 4 MG GUM BUC PRN ×3 (11:00→22:15)
[2018-03-20] MEDS: THIAMINE HCL 100 MG TABLET (FP) PO SCH (22:14)
[2018-03-20] MEDS: MELATONIN 5 MG TABLETS PO PRN (22:14)
[2018-03-21] MEDS ORDERED: METHADONE HCL 5 MG TABLET (FOR DETOX USE ONLY) PO SCH (06:00)
[2018-03-21] MEDS: NICOTINE POLACRILEX 4 MG GUM BUC PRN (08:33)
--- NOTE | 2018-03-21 08:46 | DS ---
[facility] Detox Discharge Summary Admission Date: 03/16/18 Discharge Date: 03/21/18 - History Present History: Cannabis Dependence, Cocaine Dependence, Opioid Dependence, Sedative Dependence - Physical Exam Results Vital Signs: Vital Signs Temperature 98.1 F 03/21/18 06:00 Pulse Rate 48 L 03/21/18 06:00 Respiratory Rate 18 03/21/18 06:00 Blood Pressure 104/60 03/21/18 06:00 O2 Sat by Pulse Oximetry (%) - Treatment Hospital Course: Detox Protocol Followed, Detoxed Safely, Responded well, Discharged Condition Good, Rehab Referral Accepted - Medication Discharge Medications: Ambulatory Orders Albuterol Sulfate Inhaler - [Ventolin HFA Inhaler -] 2 inh PO Q4H PRN #1 inhaler 03/20/18 - Diagnosis (1) Benzodiazepine dependence Current Visit: Yes Status: Chronic (2) Cocaine dependence Current Visit: Yes Status: Chronic Qualifiers: Substance use status: uncomplicated (3) Opioid dependence with withdrawal Current Visit: Yes Status: Chronic (4) Asthma Current Visit: Yes Status: Chronic Qualifiers: Asthma severity: mild Asthma complication type: uncomplicated - AMA Did Patient Leave Against Medical Advice: No (referred to [facility])
[2018-03-21 09:11] VITALS: BP 121/65; PULSE 79; TEMP 99.1
== END 2018-03-21 09:00 | disposition home or self-care (01) | DRG 773 ==
LOC: YASAS 10:32 → Y6N 13:16
PROVIDERS: ADMIT Neuromusculoskeletal Medicine & OMM; ATTEND Neuromusculoskeletal Medicine & OMM
PROC: HZ2ZZZZ Detoxification Services for Substance Abuse Treatment (ICD-10-PCS; principal; 2018-03-16)
DX: F11.23 Opioid dependence with withdrawal (principal); F13.20 Sedative, hypnotic or anxiolytic dependence, uncomplicated; F14.20 Cocaine dependence, uncomplicated; F17.210 Nicotine dependence, cigarettes, uncomplicated; J45.909 Unspecified asthma, uncomplicated
CPT/HCPCS: 36415; 80053; 81003; 85027; 86593; 93005; 93010

== ENCOUNTER 2020-03-07 13:49 | Inpatient (IN) | payer OTHER ==
[2020-03-07 15:44] VITALS: BMI 30.9
[2020-03-07] MEDS ORDERED: chlordiazePOXIDE HCL 25 MG CAPSULE PO PRN (15:55)
[2020-03-07] MEDS ORDERED: BISMUTH SUBSALICYLATE 524 MG/30 ML UD PO PRN (15:55)
[2020-03-07] MEDS ORDERED: cloNIDine HCL 0.1 MG TABLET PO PRN (15:55)
[2020-03-07] MEDS ORDERED: MAGNESIUM CITRATE 300 ML BOTTLE PO PRN (15:55)
[2020-03-07] MEDS ORDERED: IBUPROFEN 400 MG TABLET (FP) PO PRN (15:55)
[2020-03-07] MEDS ORDERED: MAGNESIUM HYDROX 2400MG/30ML ORAL SUSPENSION 30 ML CUP PO PRN (15:55)
[2020-03-07] MEDS ORDERED: ACETAMINOPHEN 325 MG TABLET (FP) PO PRN ×2 (15:55)
[2020-03-07] MEDS ORDERED: MENTHOL/PHENOL 1 EACH UD MM PRN (15:55)
[2020-03-07] MEDS ORDERED: MAG HYDROX/AL HYDROX/SIMETH 30 ML UNIT-DOSE CUP PO PRN (15:55)
[2020-03-07] MEDS ORDERED: ONDANSETRON *ODT* 4 MG TABLET SL PRN (15:55)
[2020-03-07] MEDS ORDERED: ALBUTEROL SO4 HFA INHALER IH PRN (15:58)
[2020-03-07] MEDS ORDERED: METHADONE HCL 10 MG TABLET (FOR DETOX USE ONLY) PO ONE (17:15)
[2020-03-07] MEDS: chlordiazePOXIDE HCL 25 MG CAPSULE PO SCH ×2 (17:51→22:14)
[2020-03-07] MEDS: hydrOXYzine PAMOATE 25 MG CAPSULE (FP) PO SCH ×2 (17:51→22:14)
[2020-03-07] MEDS: THIAMINE HCL 100 MG TABLET (FP) PO SCH (22:14)
[2020-03-07] MEDS: MELATONIN 5 MG TABLETS PO SCH (22:14)
[2020-03-08] MEDS: hydrOXYzine PAMOATE 25 MG CAPSULE (FP) PO SCH ×5 (05:50→22:10)
[2020-03-08] MEDS: chlordiazePOXIDE HCL 25 MG CAPSULE PO SCH ×4 (05:50→22:10)
[2020-03-08] MEDS ORDERED: METHADONE HCL 10 MG TABLET (FOR DETOX USE ONLY) ONE (09:20)
[2020-03-08] MEDS ORDERED: METHADONE HCL 5 MG TABLET (FOR DETOX USE ONLY) ONE (09:21)
[2020-03-08] MEDS ORDERED: METHADONE (DETOX) 20 MG, METHADONE (DETOX) 5 MG PO ONE (10:00)
[2020-03-08] MEDS: BACITRACIN 0.9 GM PACKET TP SCH (10:15)
[2020-03-08] MEDS: NICOTINE POLACRILEX 2 MG GUM BUC PRN (10:15)
[2020-03-08] MEDS: PRENATAL VITAMINS W/ FOLIC ACID TABLET (FP) PO SCH (10:15)
[2020-03-08] MEDS: NICOTINE 21 MG/24 HOURS TOPICAL PATCH TD SCH (10:18)
[2020-03-08 10:55] LABS: HEMATOCRIT 39.6 % (35.4-49); HEMOGLOBIN 13.4 GM/dL (11.7-16.9); MCH 30.3 pg (25.7-33.7); MCHC 33.9 g/dl (32.0-35.9); MEAN CELL VOLUME 89.3 fl (80-96); PLATELET COUNT 233 K/MM3 (134-434); RBC 4.44 M/mm3 (4.00-5.60); RDW 13.1 % (11.9-15.9); WHITE BLOOD COUNT 6.3 K/mm3 (4.0-10.0)
[2020-03-08 11:05] LABS: ALBUMIN 2.9 g/dl (3.4-5.0); BLOOD UREA NITROGEN 12.6 mg/dL (7-18); CALCIUM 8.6 mg/dL (8.5-10.1)
[2020-03-08 11:08] LABS: CREATININE 0.7 mg/dL (0.55-1.3)
[2020-03-08 11:10] LABS: BILIRUBIN,TOTAL 0.5 mg/dL (0.2-1); TOT PROT 5.6 g/dl (6.4-8.2)
[2020-03-08] MEDS ORDERED: SUVOREXANT 10 MG TABLET PO PRN (22:00)
[2020-03-08] MEDS: MELATONIN 5 MG TABLETS PO SCH (22:10)
[2020-03-08] MEDS: THIAMINE HCL 100 MG TABLET (FP) PO SCH (22:10)
[2020-03-09] MEDS: chlordiazePOXIDE HCL 25 MG CAPSULE PO SCH ×4 (05:40→22:25)
[2020-03-09] MEDS: hydrOXYzine PAMOATE 25 MG CAPSULE (FP) PO SCH ×5 (05:40→22:25)
[2020-03-09] MEDS ORDERED: METHADONE HCL 10 MG TABLET (FOR DETOX USE ONLY) PO ONE (10:00)
[2020-03-09] MEDS: NICOTINE 21 MG/24 HOURS TOPICAL PATCH TD SCH (10:07)
[2020-03-09] MEDS: PRENATAL VITAMINS W/ FOLIC ACID TABLET (FP) PO SCH (10:07)
[2020-03-09] MEDS: BACITRACIN 0.9 GM PACKET TP SCH (10:08)
[2020-03-09] MEDS: NICOTINE POLACRILEX 2 MG GUM BUC PRN ×2 (10:08→12:18)
[2020-03-09] MEDS: MELATONIN 5 MG TABLETS PO SCH (22:25)
[2020-03-09] MEDS: THIAMINE HCL 100 MG TABLET (FP) PO SCH (22:25)
[2020-03-10] MEDS ORDERED: chlordiazePOXIDE HCL 10 MG CAPSULE PO PRN
[2020-03-10] MEDS: chlordiazePOXIDE HCL 10 MG CAPSULE PO SCH ×4 (05:47→22:14)
[2020-03-10] MEDS: hydrOXYzine PAMOATE 25 MG CAPSULE (FP) PO SCH ×5 (05:47→22:13)
[2020-03-10] MEDS ORDERED: METHADONE HCL 5 MG TABLET (FOR DETOX USE ONLY) ONE (09:16)
[2020-03-10] MEDS ORDERED: METHADONE HCL 10 MG TABLET (FOR DETOX USE ONLY) ONE (09:16)
[2020-03-10] MEDS ORDERED: METHADONE (DETOX) 10 MG, METHADONE (DETOX) 5 MG PO ONE (10:00)
[2020-03-10] MEDS: NICOTINE 21 MG/24 HOURS TOPICAL PATCH TD SCH (10:14)
[2020-03-10] MEDS: PRENATAL VITAMINS W/ FOLIC ACID TABLET (FP) PO SCH (10:14)
[2020-03-10] MEDS: BACITRACIN 0.9 GM PACKET TP SCH (10:14)
[2020-03-10] MEDS: NICOTINE POLACRILEX 2 MG GUM BUC PRN ×3 (10:16→22:15)
[2020-03-10] MEDS: METHOCARBAMOL 500 MG TABLET PO PRN (17:06)
[2020-03-10] MEDS: MELATONIN 5 MG TABLETS PO SCH (22:13)
[2020-03-10] MEDS: THIAMINE HCL 100 MG TABLET (FP) PO SCH (22:13)
[2020-03-11] MEDS: chlordiazePOXIDE HCL 10 MG CAPSULE PO SCH ×2 (05:46→17:24)
[2020-03-11] MEDS: hydrOXYzine PAMOATE 25 MG CAPSULE (FP) PO SCH ×5 (05:46→22:03)
[2020-03-11] MEDS: NICOTINE 21 MG/24 HOURS TOPICAL PATCH TD SCH (09:08)
[2020-03-11] MEDS: PRENATAL VITAMINS W/ FOLIC ACID TABLET (FP) PO SCH (09:08)
[2020-03-11] MEDS: BACITRACIN 0.9 GM PACKET TP SCH (09:08)
[2020-03-11] MEDS: NICOTINE POLACRILEX 2 MG GUM BUC PRN ×3 (09:09→22:05)
[2020-03-11] MEDS ORDERED: METHADONE HCL 10 MG TABLET (FOR DETOX USE ONLY) PO ONE (10:00)
[2020-03-11] MEDS: METHOCARBAMOL 500 MG TABLET PO PRN (17:25)
[2020-03-11] MEDS ORDERED: SUVOREXANT 5 MG TABLET PO PRN (22:00)
[2020-03-11] MEDS ORDERED: SUVOREXANT 10 MG TABLET PO PRN (22:00)
[2020-03-11] MEDS ORDERED: traZODone HCL 50 MG TABLET (FP) PO SCH (22:00)
[2020-03-11] MEDS: MELATONIN 5 MG TABLETS PO SCH (22:03)
[2020-03-11] MEDS: THIAMINE HCL 100 MG TABLET (FP) PO SCH (22:03)
[2020-03-12] MEDS ORDERED: chlordiazePOXIDE HCL 10 MG CAPSULE PO ONE (05:00)
[2020-03-12] MEDS ORDERED: METHADONE HCL 5 MG TABLET (FOR DETOX USE ONLY) PO ONE (06:00)
[2020-03-12] MEDS: hydrOXYzine PAMOATE 25 MG CAPSULE (FP) PO SCH ×2 (06:10→09:01)
[2020-03-12] MEDS: PRENATAL VITAMINS W/ FOLIC ACID TABLET (FP) PO SCH (09:00)
[2020-03-12] MEDS: BACITRACIN 0.9 GM PACKET TP SCH (09:00)
[2020-03-12] MEDS: NICOTINE 21 MG/24 HOURS TOPICAL PATCH TD SCH (09:01)
[2020-03-12 09:15] VITALS: BP 119/71; PULSE 92; TEMP 97.7
== END 2020-03-12 09:25 | disposition home or self-care (01) | DRG 773 ==
LOC: YASAS 13:49 → Y3N 16:31
PROVIDERS: ADMIT Allergy & Immunology; ATTEND Allergy & Immunology
PROC: HZ2ZZZZ Detoxification Services for Substance Abuse Treatment (ICD-10-PCS; principal; 2020-03-07)
DX: F11.23 Opioid dependence with withdrawal (principal); F10.230 Alcohol dependence with withdrawal, uncomplicated; F14.20 Cocaine dependence, uncomplicated; F13.20 Sedative, hypnotic or anxiolytic dependence, uncomplicated; F12.20 Cannabis dependence, uncomplicated; F17.210 Nicotine dependence, cigarettes, uncomplicated; F19.24 Other psychoactive substance dependence with psychoactive substance-induced mood disorder; F32.9 Major depressive disorder, single episode, unspecified; F41.0 Panic disorder [episodic paroxysmal anxiety]; F43.21 Adjustment disorder with depressed mood; F43.10 Post-traumatic stress disorder, unspecified; J45.909 Unspecified asthma, uncomplicated; G47.00 Insomnia, unspecified; R63.4 Abnormal weight loss; Z68.31 Body mass index [BMI] 31.0-31.9, adult; Z62.810 Personal history of physical and sexual abuse in childhood; S40.812D Abrasion of left upper arm, subsequent encounter; S40.811D Abrasion of right upper arm, subsequent encounter; X08.8XXD Exposure to other specified smoke, fire and flames, subsequent encounter; Z63.4 Disappearance and death of family member; Z56.0 Unemployment, unspecified; Z59.0 Homelessness
CPT/HCPCS: 36415; 80053; 85027; 86780; C9803; U0003

== ENCOUNTER 2020-08-29 05:50 | Inpatient (IN) | payer OTHER ==
[2020-08-29 08:00] VITALS: BMI 32.1
[2020-08-29] MEDS ORDERED: cloNIDine HCL 0.1 MG TABLET PO PRN (10:12)
[2020-08-29] MEDS ORDERED: ACETAMINOPHEN 325 MG TABLET (FP) PO PRN ×2 (10:12)
[2020-08-29] MEDS ORDERED: NICOTINE POLACRILEX 2 MG GUM BUC PRN (10:12)
[2020-08-29] MEDS ORDERED: BISMUTH SUBSALICYLATE 524 MG/30 ML UD PO PRN (10:12)
[2020-08-29] MEDS ORDERED: IBUPROFEN 400 MG TABLET (FP) PO PRN (10:12)
[2020-08-29] MEDS ORDERED: MAGNESIUM CITRATE 300 ML BOTTLE PO PRN (10:12)
[2020-08-29] MEDS ORDERED: MAGNESIUM HYDROX 2400MG/30ML ORAL SUSPENSION 30 ML CUP PO PRN (10:12)
[2020-08-29] MEDS ORDERED: MENTHOL/PHENOL 1 EACH UD MM PRN (10:12)
[2020-08-29] MEDS ORDERED: ONDANSETRON *ODT* 4 MG TABLET SL PRN (10:12)
[2020-08-29] MEDS ORDERED: MAG HYDROX/AL HYDROX/SIMETH 30 ML UNIT-DOSE CUP PO PRN (10:12)
[2020-08-29] MEDS ORDERED: METHADONE HCL 10 MG TABLET (FOR DETOX USE ONLY) PO ONE (10:30)
[2020-08-29] MEDS: PRENATAL VITAMINS W/ FOLIC ACID TABLET (FP) PO SCH (11:43)
[2020-08-29] MEDS: hydrOXYzine PAMOATE 25 MG CAPSULE (FP) PO SCH ×3 (14:34→22:37)
[2020-08-29 14:39] LABS: HEMATOCRIT 40.8 % (35.4-49); MCH 30.8 pg (25.7-33.7); MCHC 34.3 g/dl (32.0-35.9); MEAN CELL VOLUME 89.8 fl (80-96); MEAN PLT VOLUME 7.5 fl (7.5-11.1); PLATELET COUNT 269 K/MM3 (134-434); RBC 4.54 M/mm3 (4.00-5.60); RDW 12.7 % (11.9-15.9); WHITE BLOOD COUNT 5.9 K/mm3 (4.0-10.0)
[2020-08-29 14:41] LABS: CALCIUM 8.5 mg/dL (8.5-10.1)
[2020-08-29 14:42] LABS: ALBUMIN 3.8 g/dl (3.4-5.0)
[2020-08-29 14:45] LABS: CREATININE 0.9 mg/dL (0.55-1.3)
[2020-08-29 14:46] LABS: BILIRUBIN,TOTAL 0.3 mg/dL (0.2-1); TOT PROT 7.1 g/dl (6.4-8.2)
[2020-08-29] MEDS: MELATONIN 5 MG TABLETS PO SCH (22:37)
[2020-08-29] MEDS: THIAMINE HCL 100 MG TABLET (FP) PO SCH (22:37)
[2020-08-30] MEDS: hydrOXYzine PAMOATE 25 MG CAPSULE (FP) PO SCH ×2 (05:39→10:55)
[2020-08-30] MEDS ORDERED: METHADONE HCL 5 MG TABLET (FOR DETOX USE ONLY) ONE (09:22)
[2020-08-30] MEDS ORDERED: METHADONE HCL 10 MG TABLET (FOR DETOX USE ONLY) ONE (09:22)
[2020-08-30] MEDS ORDERED: METHADONE (DETOX) 20 MG, METHADONE (DETOX) 5 MG PO ONE (10:00)
[2020-08-30] MEDS ORDERED: hydrOXYzine PAMOATE 25 MG CAPSULE (FP) PO PRN (10:59)
[2020-08-30] MEDS: PRENATAL VITAMINS W/ FOLIC ACID TABLET (FP) PO SCH (12:30)
[2020-08-30] MEDS: NICOTINE 21 MG/24 HOURS TOPICAL PATCH TD SCH (12:34)
[2020-08-30] MEDS: MELATONIN 5 MG TABLETS PO SCH (23:08)
[2020-08-30] MEDS: THIAMINE HCL 100 MG TABLET (FP) PO SCH (23:08)
[2020-08-31] MEDS ORDERED: METHADONE HCL 10 MG TABLET (FOR DETOX USE ONLY) PO ONE (10:00)
[2020-08-31] MEDS: NICOTINE 21 MG/24 HOURS TOPICAL PATCH TD SCH (10:51)
[2020-08-31] MEDS: METHOCARBAMOL 500 MG TABLET PO PRN (10:51)
[2020-08-31] MEDS: PRENATAL VITAMINS W/ FOLIC ACID TABLET (FP) PO SCH (10:51)
[2020-08-31] MEDS: MELATONIN 5 MG TABLETS PO SCH (23:11)
[2020-08-31] MEDS: THIAMINE HCL 100 MG TABLET (FP) PO SCH (23:11)
[2020-09-01] MEDS ORDERED: METHADONE HCL 5 MG TABLET (FOR DETOX USE ONLY) ONE (09:18)
[2020-09-01] MEDS ORDERED: METHADONE HCL 10 MG TABLET (FOR DETOX USE ONLY) ONE (09:18)
[2020-09-01] MEDS ORDERED: METHADONE (DETOX) 10 MG, METHADONE (DETOX) 5 MG PO ONE (10:00)
[2020-09-01] MEDS: METHOCARBAMOL 500 MG TABLET PO PRN ×2 (11:19→17:45)
[2020-09-01] MEDS: PRENATAL VITAMINS W/ FOLIC ACID TABLET (FP) PO SCH (11:19)
[2020-09-01] MEDS: NICOTINE 21 MG/24 HOURS TOPICAL PATCH TD SCH (11:19)
[2020-09-01 14:11] LABS: SARS-CoV-2 NAA Not Detected (Not Detected)
[2020-09-01 17:06] VITALS: BP 135/89; PULSE 98; TEMP 97.1
[2020-09-02] MEDS ORDERED: METHADONE HCL 10 MG TABLET (FOR DETOX USE ONLY) PO ONE (10:00)
[2020-09-03] MEDS ORDERED: METHADONE HCL 5 MG TABLET (FOR DETOX USE ONLY) PO ONE (06:00)
== END 2020-09-01 20:39 | disposition left against medical advice (07) | DRG 770 ==
LOC: YASAS 05:50 → Y3N 10:53
PROVIDERS: ADMIT Allergy & Immunology; ATTEND Allergy & Immunology
PROC: HZ2ZZZZ Detoxification Services for Substance Abuse Treatment (ICD-10-PCS; principal; 2020-08-29)
DX: F11.23 Opioid dependence with withdrawal (principal); F14.20 Cocaine dependence, uncomplicated; F12.20 Cannabis dependence, uncomplicated; F17.210 Nicotine dependence, cigarettes, uncomplicated; F19.24 Other psychoactive substance dependence with psychoactive substance-induced mood disorder; F43.10 Post-traumatic stress disorder, unspecified; F41.8 Other specified anxiety disorders; F32.9 Major depressive disorder, single episode, unspecified; G40.509 Epileptic seizures related to external causes, not intractable, without status epilepticus; J45.909 Unspecified asthma, uncomplicated; R00.0 Tachycardia, unspecified; R03.0 Elevated blood-pressure reading, without diagnosis of hypertension; R73.9 Hyperglycemia, unspecified; Z91.19 Patient's noncompliance with other medical treatment and regimen
CPT/HCPCS: 36415; 80053; 85027; 86780; 93005; 93010; C9803; Q0162; U0003; U0005

== ENCOUNTER 2022-10-03 18:15 | Emergency (ER) | payer OTHER ==
[2022-10-03 18:33] VITALS: BP 150/88; PULSE 86; RESP 16; TEMP 98; BMI 35.9
== END 2022-10-03 20:30 | disposition home or self-care (01) ==
LOC: FER 18:15
DX: M25.572 Pain in left ankle and joints of left foot (principal); M79.672 Pain in left foot; S93.402A Sprain of unspecified ligament of left ankle, initial encounter; X50.9XXA Other and unspecified overexertion or strenuous movements or postures, initial encounter
CPT/HCPCS: 73610-TC-LT-FY; 73630-TC-LT; 99283-25

== ENCOUNTER 2024-02-06 22:54 | Emergency (ER) | payer SELFPAY ==
[2024-02-06 23:05] VITALS: BP 126/92; PULSE 80; RESP 18; TEMP 98.1; BMI 33.5
[2024-02-06] MEDS: SODIUM CHLORIDE 0.9% 500 ML INFUS.BAG IV ONE (23:09)
[2024-02-06] MEDS ORDERED: FAMOTIDINE 20 MG/50 ML IVPB 20 MG/50 ML MG IVPB ONE (23:09)
[2024-02-06] MEDS ORDERED: ONDANSETRON 4 MG/2 ML VIAL ONE (23:09)
[2024-02-06] MEDS: ONDANSETRON 4 MG/2 ML VIAL IVPB ONE (23:10)
[2024-02-06] MEDS: FAMOTIDINE 20 MG/50 ML IVPB 20 MG/50 ML MG IVPB ONE (23:23)
== END 2024-02-07 00:29 | disposition home or self-care (01) ==
LOC: FER 22:54
PROC: 3E033GC Introduction of Other Therapeutic Substance into Peripheral Vein, Percutaneous Approach (ICD-10-PCS; principal; 2024-02-06)
PROC: 3E033GC Introduction of Other Therapeutic Substance into Peripheral Vein, Percutaneous Approach (ICD-10-PCS; 2024-02-06)
DX: K52.9 Noninfective gastroenteritis and colitis, unspecified (principal)
CPT/HCPCS: 99284-25